=== PATIENT | male | born 1955 | race African-American/Black ===

== ENCOUNTER 2016-12-15 18:09 | Emergency (ER) | payer OTHER ==
[~2016-12-15] VITALS: Ht 175.3 cm; Wt 74.4 kg
[~2016-12-15 18:09] MED LIST: ABILIFY2 MG PO; ABILIFY5 MG PO; ADVAIR 250/501 DISK IH; ADVAIR HFA120 INHALA IH; AMLODIPINE BESYL5 MG PO; ATIVAN2 MG PO; AUGMENTIN875 MG PO; AZITHROMYCIN250 MG1 PO; Ativan PO; BUSPAR15 MG PO; BUSPIRONE HCL15 MG PO; Buspar PO; CARBAMAZEPINE400 MG PO; CELEBREX200 MG PO; COMBIGAN O20 DROP/5; COMBIGAN O20 DROP/5 BOTH EYES; DOXYCYCLINE HY100 M3 PO; EFFEXOR XR75 MG PO; Effexor XR PO; GLUCOPHAGE500 MG PO; HYDROCHLOROTHIA50 MG PO; Hydrodiuril,Oretic,E PO; K-DUR20 MEQ PO; K-Dur PO; KLOR-CON M2020 MEQ PO; LEVOFLOXACIN750 MG PO; LORAZEPAM2 MG PO; LOVASTATIN20 MG; LOVASTATIN20 MG PO; LUMIGAN 0.01% EYE DR BOTH EYES; LUMIGAN 0.50 DROP/2.; LUMIGAN 0.50 DROP/22 BOTH EYES; METFORMIN HCL500 MG PO; Norvasc PO; OMEPRAZOLE40 M1 PO; PAIN RELIEVER325 MG PO; PHENOBARBITAL32.4 MG PO; PHENobarbital PO; PREDNISONE20 MG PO; PROAIR HFA8.5 GM IH; RANITIDINE HCL150 MG PO; SPIRIVA RESPIMAT4 GM IH; TEGretol-XR,Carbatro PO; TRUSOPT5 ML BOTH EYES; TYLENOL EXTRA500 MG PO; VITAMIN E400 UNIT PO; VITAMIN E800 UNIT PO; Vitamin-E PO; Zantac PO
[2016-12-15 18:17] VITALS: BP 154/81
[2016-12-15] MEDS ORDERED: ATIVAN2 MG PO (18:19)
[2016-12-15] MEDS ORDERED: BUSPAR15 MG PO (18:20)
[2016-12-15] MEDS ORDERED: VENLAFAXINE HCL75 M3 PO (18:20)
[2016-12-15] MEDS ORDERED: LOVASTATIN20 MG PO (18:20)
[2016-12-15] MEDS ORDERED: MOBIC15 MG PO (20:18)
== END 2016-12-15 20:31 | disposition home or self-care (01) ==
LOC: EME 18:09
DX: M25.561 Pain in right knee (principal); E11.9 Type 2 diabetes mellitus without complications; Z79.84 Long term (current) use of oral hypoglycemic drugs; F17.200 Nicotine dependence, unspecified, uncomplicated
CPT/HCPCS: 73564; 99281; 99284

== ENCOUNTER 2017-01-10 22:53 | Emergency (ER) | payer OTHER ==
[~2017-01-10] VITALS: Ht 175.3 cm; Wt 77.6 kg
[~2017-01-10 22:53] MED LIST changes: +MOBIC15 MG PO; +VENLAFAXINE HCL75 M3 PO
[2017-01-11] MEDS ORDERED: TRAMADOL HCL50 MG PO (01:39)
[2017-01-11 02:33] VITALS: BP 132/81
== END 2017-01-11 02:34 | disposition home or self-care (01) ==
LOC: EME 22:53
DX: M25.561 Pain in right knee (principal); G89.29 Other chronic pain
CPT/HCPCS: 73564; 99281; 99285

== ENCOUNTER 2017-01-20 18:33 | Emergency (ER) | payer OTHER ==
[~2017-01-20] VITALS: Ht 175.3 cm; Wt 76.2 kg
[~2017-01-20 18:33] MED LIST changes: +TRAMADOL HCL50 MG PO
[2017-01-20] MEDS ORDERED: NAPROSYN500 MG PO (19:38)
[2017-01-20 19:46] VITALS: BP 171/78
== END 2017-01-20 19:47 | disposition home or self-care (01) ==
LOC: EME 18:33
DX: M65.88 Other synovitis and tenosynovitis, other site (principal)
CPT/HCPCS: 73080; 99281; 99283

== ENCOUNTER 2017-03-16 14:08 | Emergency (ER) | payer OTHER ==
[~2017-03-16] VITALS: Ht 175.3 cm; Wt 75.6 kg
[~2017-03-16 14:08] MED LIST changes: +NAPROSYN500 MG PO
[2017-03-16 14:23] VITALS: BP 150/86
[2017-03-16] MEDS ORDERED: NAPROSYN500 MG PO (15:23)
== END 2017-03-16 15:55 | disposition home or self-care (01) ==
LOC: EME 14:08
DX: Z04.1 Encounter for examination and observation following transport accident (principal); M25.561 Pain in right knee; M25.562 Pain in left knee; Z88.8 Allergy status to other drugs, medicaments and biological substances; Z88.1 Allergy status to other antibiotic agents; Z91.018 Allergy to other foods; F17.200 Nicotine dependence, unspecified, uncomplicated
CPT/HCPCS: 99281; 99284